=== PATIENT | male | born 1965 | race Caucasian/White ===

== ENCOUNTER 2017-02-28 11:13 | Outpatient (CLI) | payer BC | END 2017-02-28 11:14 | disposition home or self-care (01) | LOC: BICRAD 11:13 | PROVIDERS: ATTEND Family Medicine | DX: J40 Bronchitis, not specified as acute or chronic (principal) | CPT/HCPCS: 36415; 71020; 80053; 80061; 81003; 84443; 85025; 86140; G0103 ==

== ENCOUNTER 2017-04-11 08:15 | Outpatient (CLI) | payer BC ==
--- NOTE | 2017-04-11 10:10 | CT ---
CT ABDOMEN AND PELVIS WITH CONTRAST: History: R10.31 right lower quadrant pain. Comparison: None. FINDINGS: There is an incompletely evaluated nodule in the left lung base measuring 5 mm, although it may be la rger as it is only seen on the first image. No pericardial effusion. There is marked abnormal thicken ing of the sigmoid colon which is circumferential. A few abnormal supine mesenteric lymph nodes. Terminal ileus is normal. The appendix is visualized and is normal. Moderate atherosclerotic plaque aortoiliac system without aneurysmal dilation. The spleen as well as the pancreas are unremarkable. Multiple too small to characterize hypodensities of the liver are pres ent. No dilated loops of small or large bowel. No hydronephrosis. No acute osseous abnormality. IMPRESSION: 1. Marked thickening of the sigmoid colon with multiple diverticula as well as some mildly enlarged m esenteric lymph nodes. Findings can be seen with malignant process or resolving diverticulitis as the re is some mild thickening of the left pericolic gutter fascia. Colonoscopic evaluation is highly re commended. Code T 2. 5 mm nodule left lung base incompletely evaluated on this examination, only seen on the first imag e. Non-emergent follow up CT of the chest recommended. Code LN. POS: [facility]
[2017-04-11] MEDS ORDERED: Iopamidol 370 76% 100 ML VIAL ONE (12:28)
== END 2017-04-11 08:16 | disposition home or self-care (01) ==
LOC: CT 08:15
PROVIDERS: ATTEND Family Medicine
DX: R10.31 Right lower quadrant pain (principal); K57.30 Diverticulosis of large intestine without perforation or abscess without bleeding; K63.89 Other specified diseases of intestine; R59.0 Localized enlarged lymph nodes; R91.1 Solitary pulmonary nodule
CPT/HCPCS: 74177

== ENCOUNTER 2024-10-28 07:45 | Outpatient (CLI) | payer OTHER | END 2024-10-28 07:46 | disposition home or self-care (01) | LOC: BICCT 07:45 | PROVIDERS: ATTEND Internal Medicine Critical Care Medicine | DX: R91.8 Other nonspecific abnormal finding of lung field (principal) | CPT/HCPCS: 71250 ==

== ENCOUNTER 2024-11-07 08:00 | Outpatient (CLI) | payer SELFPAY | END 2024-11-07 08:01 | disposition home or self-care (01) | LOC: PET 08:00 | PROVIDERS: ATTEND Internal Medicine Critical Care Medicine | DX: R91.8 Other nonspecific abnormal finding of lung field (principal) | CPT/HCPCS: 78815; A9552 ==

== ENCOUNTER 2025-01-28 10:17 | Outpatient (CLI) | payer BC, SELFPAY | END 2025-01-28 10:18 | disposition home or self-care (01) | LOC: RAD 10:17 | PROVIDERS: ATTEND Internal Medicine Critical Care Medicine | DX: R06.00 Dyspnea, unspecified (principal); J43.9 Emphysema, unspecified | CPT/HCPCS: 71046 ==

== ENCOUNTER 2025-02-19 07:27 | Outpatient (CLI) | payer BC | END 2025-02-19 07:28 | disposition home or self-care (01) | LOC: CT 07:27 | PROVIDERS: ATTEND Internal Medicine Critical Care Medicine | DX: R91.8 Other nonspecific abnormal finding of lung field (principal); J43.9 Emphysema, unspecified | CPT/HCPCS: 71250 ==